=== PATIENT | male | born 1965 | race Caucasian/White ===

== ENCOUNTER 2022-03-31 22:36 | Emergency (ER) | payer OTHER ==
[2022-03-31 22:47] VITALS: BP 158/100; PULSE 87; RESP 18; TEMP 98; BMI 40.4
[2022-03-31] MEDS ORDERED: KETOROLAC TROMETHAMINE 30 MG/1 ML VIAL IVPUSH ONE (23:25)
[2022-03-31] MEDS ORDERED: LIDOCAINE 5% TOPICAL PATCH TP ONE (23:25)
[2022-03-31] MEDS ORDERED: KETOROLAC TROMETHAMINE 15 MG/ML VIAL ONE (23:43)
[2022-03-31] MEDS ORDERED: LIDOCAINE 5% TOPICAL PATCH ONE (23:43)
[2022-04-01] MEDS ORDERED: LIDOCAINE PATCH REMOVAL MC ONE (11:00)
== END 2022-04-01 01:14 | disposition home or self-care (01) ==
LOC: JER 22:36
PROC: 3E033GC Introduction of Other Therapeutic Substance into Peripheral Vein, Percutaneous Approach (ICD-10-PCS; principal; 2022-03-31)
DX: M54.2 Cervicalgia (principal); V49.40XA Driver injured in collision with unspecified motor vehicles in traffic accident, initial encounter
CPT/HCPCS: 72125-TC; 72131-TC; 99285-25